=== PATIENT | male | born 1980 | race Caucasian/White ===

== ENCOUNTER 2022-02-17 15:18 | Outpatient (REF) | payer OTHER, SELFPAY ==
[2022-02-17 18:21] LABS: Folate 12.7 ng/mL (> or = 4.0); Vitamin B12 992 pg/mL (200-900)
== END 2022-02-17 15:19 | disposition home or self-care (01) ==
LOC: HO.LAB 15:18
PROVIDERS: PCP Internal Medicine; Visit Provider Psychiatry & Neurology Neurology
DX: G31.84 Mild cognitive impairment of uncertain or unknown etiology (principal)
CPT/HCPCS: 36415; 82607; 82746

== ENCOUNTER 2023-07-20 11:04 | Outpatient (REF) | payer OTHER, SELFPAY ==
[2023-07-20 11:37] LABS: Ammonia 28 umol/L (13-55)
[2023-07-20 13:14] LABS: Vitamin B12 730 pg/mL (200-900)
== END 2023-07-20 11:05 | disposition home or self-care (01) ==
LOC: HO.LAB 11:04
PROVIDERS: PCP Internal Medicine; Visit Provider Psychiatry & Neurology Neurology
DX: G31.84 Mild cognitive impairment of uncertain or unknown etiology (principal)
CPT/HCPCS: 36415; 82140; 82607

== ENCOUNTER 2023-09-01 07:30 | Outpatient (REF) | payer OTHER, SELFPAY ==
--- NOTE | ~2023-09-01 | MR_ITS ---
EXAMINATION: MR BRAIN WITHOUT CONTRAST CLINICAL INFORMATION: Mild cognitive impairment COMPARISON: None. TECHNIQUE: MRI of the brain was obtained using routine sequences without contrast. FINDINGS: No acute infarct. No acute intracranial hemorrhage or extra-axial fluid collection. The ventricles and sulci are normal in size and configuration without significant volume loss or hydrocephalus. No parenchymal signal abnormality. No mass lesion, mass effect, or herniation pattern. Normal intracranial arterial and dural venous sinus flow voids. Normal appearance of the midline structures. Artifact presumably from mascara limits assessment of the globes. The paranasal sinuses and mastoids are well aerated. Normal marrow signal. Several sebaceous vs trichilemmal cysts in the posterior/suboccipital scalp on the right. MR/MR head/brain wo con IMPRESSION: Unremarkable brain MRI.
== END 2023-09-01 07:31 | disposition home or self-care (01) ==
LOC: HO.MRI 07:30
PROVIDERS: PCP Internal Medicine; Visit Provider Psychiatry & Neurology Neurology
DX: G31.84 Mild cognitive impairment of uncertain or unknown etiology (principal)
CPT/HCPCS: 70551